=== PATIENT | male | born 1955 | race African-American/Black ===

== ENCOUNTER 2018-08-21 17:03 | Emergency (ER) | payer MEDICAID ==
[2018-08-21 19:31] LABS: BASOPHILS % 0.6 % (0.0-2.0); EOSINOPHILS % 0.6 % (0.0-5.0); HEMATOCRIT. 37.9 % (42.0-52.0); LYMPHOCYTES % 14.2 % (20.0-50.0); MEAN CORPUSCULAR HEMOGLOBIN 29.5 pg (28.0-32.0); MEAN CORPUSCULAR VOLUME 86.1 fL (80.0-94.0); MONOCYTES % 9.9 % (2.0-8.0); NEUTROPHILS % 74.7 % (40.0-76.0); PLATELET 235 x1000/uL (130-400); RED CELL DISTRIBUTION WIDTH 13.7 % (11.6-14.6)
[2018-08-21 19:35] LABS: INR 1.2; PARTIAL THROMBOPLASTIN TIME 26.1 sec (23.4-31.0); PROTHROMBIN TIME 11.9 sec (9.6-11.0)
[2018-08-21 19:36] LABS: CHLORIDE 105 mEq/L (98-107)
[2018-08-21 19:40] LABS: ETHANOL BLOOD < 10 mg/dL
[2018-08-21] MEDS ORDERED: MORPHINE SULFATE 4 MG/ML CPJ (NOT FOR IM USE) IV ONE (20:30)
[2018-08-21] MEDS ORDERED: ONDANSETRON HCL 4MG/2ML INJ IV ONE (20:30)
[2018-08-21 21:37] VITALS: BP 124/82
== END 2018-08-21 21:37 | disposition short-term general hospital (02) ==
LOC: ER 17:03
DX: S06.899A Other specified intracranial injury with loss of consciousness of unspecified duration, initial encounter (principal); S14.106A Unspecified injury at C6 level of cervical spinal cord, initial encounter; S12.500A Unspecified displaced fracture of sixth cervical vertebra, initial encounter for closed fracture; M89.8X8 Other specified disorders of bone, other site; Y93.89 Activity, other specified; V49.50XA Passenger injured in collision with unspecified motor vehicles in traffic accident, initial encounter; Y92.410 Unspecified street and highway as the place of occurrence of the external cause; G93.41 Metabolic encephalopathy; W22.12XA Striking against or struck by front passenger side automobile airbag, initial encounter
CPT/HCPCS: 36415; 70450; 70486; 71045; 71260; 72125; 74177; 80053; 80320; 83880; 84484; 85025; 85610; 85730; 96374; 96375; 99285; J2270; J2405; G0480